=== PATIENT | male | born 1950 | race Caucasian/White ===

== ENCOUNTER → 2020-02-17 10:48 | Outpatient (BNVA) | payer MEDICARE, SELFPAY | PROVIDERS: Visit Provider Urology | DX: N40.1 Benign prostatic hyperplasia with lower urinary tract symptoms (principal); N13.8 Other obstructive and reflux uropathy; N52.9 Male erectile dysfunction, unspecified; R39.12 Poor urinary stream; N20.0 Calculus of kidney | CPT/HCPCS: Q3014 ==

== ENCOUNTER 2021-06-18 10:36 | Outpatient (REF) | payer MEDICARE, SELFPAY ==
--- NOTE | ~2021-06-18 | US_ITS ---
EXAMINATION: US RETROPERITONEAL LIMITED (RENAL ONLY) CLINICAL INFORMATION: Calculus of kidney. COMPARISON: None TECHNIQUE: Real-time imaging of the kidneys. FINDINGS: RIGHT KIDNEY: 10.9 x 5.4 x 4.6 cm (SAG x AP x TRV). The kidney is normal in size, contour, and echogenicity. Renal cortical thickness is normal. No focal parenchymal lesions. No hydronephrosis. . 3 mm Echogenic foci probably vascular calcifications versus nonobstructing stone. LEFT KIDNEY: 10.3 x 5.3 x 5.1 cm (SAG x AP x TRV). The kidney is normal in size, contour, and echogenicity. Renal cortical thickness is normal. No calculi or focal parenchymal lesions. No hydronephrosis. US/US renal BI IMPRESSION: Echogenic foci in the periphery of the right kidney might be vascular versus nonobstructing stone. No hydronephrosis..
[2021-06-18 13:10] LABS: Prostate Specific Antigen 0.52 ng/mL (<0.05-4.0)
== END 2021-06-18 10:37 | disposition home or self-care (01) ==
LOC: HO.US 10:36
PROVIDERS: PCP Internal Medicine; Visit Provider Urology
DX: Z12.5 Encounter for screening for malignant neoplasm of prostate (principal); N40.1 Benign prostatic hyperplasia with lower urinary tract symptoms; N20.0 Calculus of kidney; N13.8 Other obstructive and reflux uropathy
CPT/HCPCS: 36415; 76775; 84153

== ENCOUNTER → 2021-06-26 09:55 | Outpatient (BNVA) | payer MEDICARE, SELFPAY | PROVIDERS: Visit Provider Urology | DX: N40.1 Benign prostatic hyperplasia with lower urinary tract symptoms (principal); N13.8 Other obstructive and reflux uropathy; N52.9 Male erectile dysfunction, unspecified; N20.0 Calculus of kidney | CPT/HCPCS: 51798; 99212 ==

== ENCOUNTER 2022-10-28 12:38 | Outpatient (AMB) | payer MEDICARE, SELFPAY ==
--- NOTE | 2022-10-28 13:00 | A.OFFVIS_ITS ---
Intake Intake Visit Reasons: PSA Follow Up(SET) Intake Note: Patient is present for Follow Up PSA Urology Med: Terazosin Antibiotic Allergy: None Blood Thinner: None Pharmacy: [facility] PVR: 0ml Allergies No Known Allergies Allergy (Verified 10/28/22 13:01) Medication List - Last Reconciled 10/28/[address] MD amoxicillin 0 mg PO atorvastatin 10 mg PO DAILY fluticasone propionate 50 mcg/actuation 2 sprays intranasal DAILY gentamicin 0.3% 0 drps ophthalmic (eye) ipratropium bromide intranasal prednisone 10 mg PO BID terazosin 8 mg PO DAILY terazosin 10 mg PO BEDTIME 90 days HPI HPI Comments History of Present Illness Details Stuart is a pleasant male. He is a patient of Dr. Sousa. He is seen for the following urologic conditions - lower urinary tract symptoms - erectile dysfunction Discussed ultrasound finding Small stone Minimal symptoms Urination well-controlled on terazosin Did discuss postvoid dribbling Male Kegel exercises discussed 12 month follow-up imaging labs Erectile dysfunction: Stable Has medication He presents today for for continued evaluation and management of erectile dysfunction - medications work Symptoms have been present for/since ongoing. Current treatment includes none. At this time he experiences erections 2/19 are partial and adequate for vaginal penetration, that undergo rapid detumesence after penetration, YOANA 17- 21 Mild ED. Nocturnal erections do occur. Currently they are in a stable relationship. Associated problems hypertension No diabetes No dyslipidemia Yes Overall he is satisfied with the current management. Prostate/Bladder: Stable with daily terazosin Continue therapy Benign prostatic hyperplasia (BPH) was diagnosed A number of years . Current symptoms include straining, weak flow. Severity of the symptoms is 3 out of 10. Aggravating factors include no aggravating factors. Alleviating factors include alpha blockers - terazosin. Current medication(s) include terazosin 2mg. Recent labs included a PSA (prostate-specific antigen) 2013 0.7 09/15 0.6. Investigative studies included a uroflow Q. max 19.8, cystoscopy 2012 a large middle lobe of prostate. Noted on CT scan as well.. Nephrolithiasis/Urolithiasis: Imaging stable They are here for further evaluation of nephrolithiasis. The patient previously had kidney stones whose composition w unknown. Prior treatment(s) include observation. Prior imaging includes 02/16 , a CT (computed tomography) scan of the abdomen/pelvis (stone protocol), showing radiodense stone(s) 2mm right 02/17 , a renal ultrasound, small right renal stone. - 02/18 renal ultrasound. Question of small right renal stone - 05/21 renal ultrasound no stone seen Current therapeutic plan will be to continue with imaging surveillance. [facility] Medical History BPH (benign prostatic hyperplasia) Erectile dysfunction Hyperlipidemia Prostatism Scrotal anomaly Surgical History H/O arthroscopy of shoulder Review of Systems Const Denies chills and Denies fever(s) Card Reports no additional complaints and Denies syncope Resp Denies cough GI Denies abdominal pain and Denies heartburn Reports as per HPI and Denies change in libido Neuro Denies syncope Psych Denies change in libido Endo Denies change in libido Physical Exam Const General: cooperative, healthy appearing, comfortable and no acute distress Orientation/consciousness: patient oriented x3 HEENT Face and sinus: Yes normal facial exam Mouth: moist mucous membranes Neck Neck: Yes normal visual inspection, Yes full ROM and Yes trachea midline Chest Chest palpation & inspection: normal inspection of the chest Resp Effort & Inspection: normal respiratory effort, able to speak in complete sentences and no respiratory distress GI Inspection: Yes normal to inspection Back/Spine/Pelvis Cervical Spine: normal cervical lordosis Thoracic/Lumbar Spine: thoracic and lumbar spine normal to inspection Skin General skin exam: no rashes or lesions noted Neuro General: patient oriented x3, gait normal, tone normal and moves all extremities Extrem General: Yes normal to inspection and Yes capillary refill normal Office Procedures Post Void Residual Post Residual Void Post Void Residual (PVR): 0 [id number] Void Residual by ultrasound Assessment & Plan Assessment & Plan (1) Nephrolithiasis: Code(s): N20.0 - Calculus of kidney (2) Erectile dysfunction: Code(s): N52.9 - Male erectile dysfunction, unspecified (3) BPH w urinary obs/LUTS: Code(s): N40.1 - Benign prostatic hyperplasia with lower urinary tract symptoms; N13.8 - Other obstructive and reflux uropathy Plan Twelve month follow-up PSA labs Orders: Orders Prostate Specific Antigen 364 Days N20.0 - Calculus of kidney US renal BI 364 Days N20.0 - Calculus of kidney AMB Urinalysis Automated Today Z13.9 - Encounter for screening, unspecified AMB Post Void Residual by ultrasound Today N13.8 - Other obstructive and reflux uropathy, N40.1 - Benign prostatic hyperplasia with lower urinary tract symptoms Patient Instructions: Imaging studies, laboratory and physical exam results were discussed and reviewed in detail. No major barriers to patient understanding were identified. An opportunity to ask questions regarding the treatment plan was provided. All questions were answered. The patient expressed understanding and agreement with the above treatment plan. The patient is aware they should contact our office by phone for worsening of their current condition or the appearance of new urologic symptoms. Compliance is encouraged with any medications and followup testing that is ordered. It is a privilege to participate in the urologic care of your patient. If you have any questions or concerns regarding treatment for the above conditions, or other urologic issues, please do not hesitate to contact me. The office telephone contact is [phone]. This note is constructed using voice recognition software. While every effort has been made to ensure accuracy computer lab para professional errors may have been included. Yours sincerely, Dr Julio Cesar Street MD, [facility] - Urology Providers of Expert, Compassionate Care for the Genitourinary System Coding Level of Care Code Est Pt Level 4 (69555) Diagnoses Nephrolithiasis N20.0 Erectile dysfunction N52.9 BPH w urinary obs/LUTS N40.1; N13.8 CPT Codes Post Residual Void - PVR CPT Code: 19034-[id number] Void Residual by ultrasound ([id number])
== END 2022-10-28 15:08 | disposition home or self-care (01) ==
PROVIDERS: PCP Internal Medicine; Visit Provider Urology
DX: N20.0 Calculus of kidney (principal); N52.9 Male erectile dysfunction, unspecified; N40.1 Benign prostatic hyperplasia with lower urinary tract symptoms; N13.8 Other obstructive and reflux uropathy
CPT/HCPCS: 99214

== ENCOUNTER → 2022-10-28 12:38 | Outpatient (BNVA) | payer MEDICARE, SELFPAY | PROVIDERS: Visit Provider Urology | DX: N40.1 Benign prostatic hyperplasia with lower urinary tract symptoms (principal); N13.8 Other obstructive and reflux uropathy; N52.9 Male erectile dysfunction, unspecified; N20.0 Calculus of kidney | CPT/HCPCS: 51798; 99212 ==

== ENCOUNTER 2023-10-08 14:10 | Outpatient (REF) | payer MEDICARE, SELFPAY ==
--- NOTE | ~2023-10-08 | US_ITS ---
EXAMINATION: US RETROPERITONEAL COMPLETE (RENAL) CLINICAL INFORMATION: Renal calculus. COMPARISON: Renal ultrasound June 18, 2021 TECHNIQUE: Real-time imaging of the kidneys and bladder. FINDINGS: RIGHT KIDNEY: 10.7 x 5.3 x 5.0 cm (SAG x AP x TRV). The kidney is normal in size, contour, and echogenicity. Renal cortical thickness is normal. No calculi or focal parenchymal lesions. No hydronephrosis. LEFT KIDNEY: 9.9 x 5.2 x 4.4 cm (SAG x AP x TRV). The kidney is normal in size, contour, and echogenicity. Renal cortical thickness is normal. No calculi or focal parenchymal lesions. No hydronephrosis. US/US renal BI IMPRESSION: Unremarkable sonographic imaging of the kidneys. Specifically, no renal calculi or hydronephrosis of either kidney. Electronically signed by: Severino Flores MD 10/29/2023 07:28 AM EDT
== END 2023-10-08 14:11 | disposition home or self-care (01) ==
LOC: HO.US 14:10
PROVIDERS: PCP Internal Medicine; Visit Provider Urology
DX: N20.0 Calculus of kidney (principal)
CPT/HCPCS: 76775

== ENCOUNTER 2023-10-21 09:14 | Outpatient (REF) | payer MEDICARE, SELFPAY | END 2023-10-21 09:15 | disposition home or self-care (01) | LOC: HO.LAB 09:14 | PROVIDERS: PCP Internal Medicine; Visit Provider Urology | DX: Z12.5 Encounter for screening for malignant neoplasm of prostate (principal); N20.0 Calculus of kidney | CPT/HCPCS: 36415; 84153 ==

== ENCOUNTER 2023-10-27 13:29 | Outpatient (AMB) | payer MEDICARE, SELFPAY ==
--- NOTE | 2023-10-27 13:52 | MHC.OFFVIS ---
Intake Visit Reasons: 1Y Follow Up-PSA/US(set) Intake Note: Patient is Present for Follow Up PSA/Ultrasound Urology Medication: Terazosin Antibiotic Allergies: None Blood Thinners:None Header Machine Operator Required: No Accompanied by: Self / Same As Patient Allergies No Known Allergies Allergy (Verified 10/27/23 13:55) HPI Comments Details: Stuart is a pleasant male. He is a patient of Dr. Sousa. He is seen for the following urologic conditions - lower urinary tract symptoms - erectile dysfunction Ultrasound shows no stones Urination well-controlled on terazosin Previously recommended male Kegel exercises 12 month follow-up imaging labs Erectile dysfunction: Stable Has medication He presents today for for continued evaluation and management of erectile dysfunction - medications work Symptoms have been present for/since ongoing. Current treatment includes none. At this time he experiences erections 2/ are partial and adequate for vaginal penetration, that undergo rapid detumesence after penetration, YOANA 17-21 Mild ED. Nocturnal erections do occur. Currently they are in a stable relationship. Associated problems hypertension No diabetes No dyslipidemia Yes Overall he is satisfied with the current management. Prostate/Bladder: Stable with daily terazosin Continue therapy Benign prostatic hyperplasia (BPH) was diagnosed A number of years . Current symptoms include straining, weak flow. Severity of the symptoms is 3 out of 10. Aggravating factors include no aggravating factors. Alleviating factors include alpha blockers - terazosin. Current medication(s) include terazosin 2mg. Recent labs included a PSA (prostate-specific antigen) 2013 0.7 09/15 0.6. Investigative studies included a uroflow Q. max 19.8, cystoscopy 2012 a large middle lobe of prostate. Noted on CT scan as well.. Nephrolithiasis/Urolithiasis: Imaging stable They are here for further evaluation of nephrolithiasis. The patient previously had kidney stones whose composition w unknown. Prior treatment(s) include observation. Prior imaging includes 02/16 , a CT (computed tomography) scan of the abdomen/pelvis (stone protocol), showing radiodense stone(s) 2mm right 02/17 , a renal ultrasound, small right renal stone. - 02/18 renal ultrasound. Question of small right renal stone - 05/21 renal ultrasound no stone seen - 10/23 renal ultrasound no stones Current therapeutic plan will be to continue with imaging surveillance. [facility] Medical History Hyperlipidemia Prostatism Erectile dysfunction Scrotal anomaly BPH (benign prostatic hyperplasia) Surgical History H/O arthroscopy of shoulder Review of Systems Const Denies chills and Denies fever(s) Card Reports no additional complaints and Denies syncope Resp Denies cough GI Denies abdominal pain and Denies heartburn Reports as per HPI and Denies change in libido Neuro Denies syncope Psych Denies change in libido Endo Denies change in libido Physical Exam Const General: cooperative, healthy appearing, comfortable and no acute distress Orientation/consciousness: patient oriented x3 HEENT Face and sinus: Yes normal facial exam Mouth: moist mucous membranes Neck Neck: Yes normal visual inspection, Yes full ROM and Yes trachea midline Chest Chest palpation & inspection: normal inspection of the chest Resp Effort & Inspection: normal respiratory effort, able to speak in complete sentences and no respiratory distress GI Inspection: Yes normal to inspection Back/Spine/Pelvis Cervical Spine: normal cervical lordosis Thoracic/Lumbar Spine: thoracic and lumbar spine normal to inspection Skin General skin exam: no rashes or lesions noted Neuro General: patient oriented x3, gait normal, tone normal and moves all extremities Extrem General: Yes normal to inspection and Yes capillary refill normal Assessment & Plan Assessment & Plan (1) BPH w urinary obs/LUTS: Code(s): N40.1 - Benign prostatic hyperplasia with lower urinary tract symptoms; N13.8 - Other obstructive and reflux uropathy Category: Medical (2) Weak urinary stream: Code(s): R39.12 - Poor urinary stream Category: Medical (3) Erectile dysfunction: Code(s): N52.9 - Male erectile dysfunction, unspecified Category: Medical (4) Nephrolithiasis: Code(s): N20.0 - Calculus of kidney Category: Medical Plan Twelve month follow-up ultrasound Orders: Orders US renal BI 12 Months N20.0 - Calculus of kidney Patient Instructions: Imaging studies, laboratory and physical exam results were discussed and reviewed in detail. No major barriers to patient understanding were identified. An opportunity to ask questions regarding the treatment plan was provided. All questions were answered. The patient expressed understanding and agreement with the above treatment plan. The patient is aware they should contact our office by phone for worsening of their current condition or the appearance of new urologic symptoms. Compliance is encouraged with any medications and followup testing that is ordered. It is a privilege to participate in the urologic care of your patient. If you have any questions or concerns regarding treatment for the above conditions, or other urologic issues, please do not hesitate to contact me. The office telephone contact is [phone]. This note is constructed using voice recognition software. While every effort has been made to ensure accuracy treating machine operator errors may have been included. Yours sincerely, Dr Julio Cesar Street MD, [facility] - Urology Providers of Expert, Compassionate Care for the Genitourinary System Coding Level of Care Code Est Pt Level 4 (02541) Diagnoses BPH w urinary obs/LUTS N40.1; N13.8 Weak urinary stream R39.12 Erectile dysfunction N52.9 Nephrolithiasis N20.0
== END 2023-10-27 14:16 | disposition home or self-care (01) ==
LOC: HO.HUSH 13:29
PROVIDERS: PCP Internal Medicine; Visit Provider Urology
DX: N40.1 Benign prostatic hyperplasia with lower urinary tract symptoms (principal); N13.8 Other obstructive and reflux uropathy; R39.12 Poor urinary stream; N52.9 Male erectile dysfunction, unspecified; N20.0 Calculus of kidney
CPT/HCPCS: 99214

== ENCOUNTER → 2023-10-27 13:29 | Outpatient (BNVA) | payer MEDICARE, SELFPAY | PROVIDERS: PCP Internal Medicine; Visit Provider Urology | DX: N40.1 Benign prostatic hyperplasia with lower urinary tract symptoms (principal); N52.9 Male erectile dysfunction, unspecified; N13.8 Other obstructive and reflux uropathy; R39.12 Poor urinary stream; Z87.442 Personal history of urinary calculi | CPT/HCPCS: 99212 ==

== ENCOUNTER 2024-11-04 13:44 | Outpatient (REF) | payer MEDICARE, SELFPAY ==
--- NOTE | ~2024-11-04 | US_ITS ---
CLINICAL HISTORY: N40.1 - Benign prostatic hyperplasia with lower urinary tract symptoms US renal with Color Doppler Comparison: US/SR - US KIDNEY BILATERAL - 10/08/23 14:27 EDT Findings: Right kidney normal size and echotexture, 10.2 cm length. No hydronephrosis calculus or mass. Normal color flow. Left kidney normal size and echotexture, 9.8 cm length. No hydronephrosis calculus or mass. Normal color flow. Impression: 1. Normal renal ultrasound This document has been electronically signed by: Guicho Trevizo MD on 11/05/2024 18:32:21
--- OUTSIDE RECORDS SUMMARY | 2024-11-04 14:13 | XMS_ITS | Clinical Summary ---
Author Organization [facility] Address [address] [place] [address] Care Team Providers Care Reservoir Caretaker Name Role Phone None, Provider PAD MACHINE FEEDER Primary Care Provider Unavaila ble Social History Tobacco Use Types Packs/Day Years Used Date Smoking Tobacco: Never Assessed Sex and Gender Information Value Date Recorded Sex Assigned at Not on file Legal Sex Male 18:36 EST Gender Identity Not on file Sexual Orientation Not on file Plan of Treatment Health Maintenance Due Date Last Done Comments Hepatitis C Screen 1950 Fall Risk Screening 2014 COVID-19 Vaccine (2023- season) 2023 RSV Immunization ( o r 60+ Years) (1 - 1-dose 75+ series) 2024 Care Teams Reservoir Caretaker Relationship Specialty Start Date End Date None, Provider, PAD MACHINE FEEDER PCP - General 01/15/15
--- OUTSIDE RECORDS SUMMARY | 2024-11-04 14:13 | XMS_ITS | Encounter Summary ---
Author Organization [facility] Address [address] [place] [address] Care Team Providers Care Sign Builder Supervisor Name Role Phone Marcus Sousa MD Primary Care Provider [phone] Earl Kenney MD Unavailable [phone] Meet Sales MD Unavailable [phone] Encounter Details Date Type Department Care Team ([facility] Contact Info) Description 12/09/2019 Scanned Document [facility] [place] at [address] [address] Provider, Generic Social History Tobacco Use Types Packs/Day Years Used Date Smoking Tobacco: Never Smokeless Tobacco: Never Alcohol Use Standard Drinks/Week Comments Yes 0 (1 standard drink = 0.6 oz pur e alcohol) 1 beer every 2 weeks Sex and Gender Information Value Date Recorded Sex Assigned at Male 07/14/2024 6:52 AM EDT Legal Sex Male 2:26 PM EDT Gender Identity Male 07/14/2024 6:52 AM EDT Sexual Orientation Asexual 07/14/2024 6: 52 AM EDT COVID-19 Exposure Response Date Recorded In the last month, have you been in contact with someone who was confirmed or suspected to have Coronavirus / COVID-19? No / Unsure 12/08/2019 1:03 PM EDT documented as of this encounter Plan of Treatment Upcoming Encounters Date Type Department Care Team (Late Contact Info) Description 11/22/2024 7:30 AM EDT Appointment [facility] [address] [phone] Greg Méndez, STACKER ATTENDANT [address] [facility] [address] [place] [address] 11/22/2024 7:30 AM EDT Appointment [facility] [address] [place] [address] Meet Sales MD [address] [facility] [address] [place] [address] 12/15/2024 9:30 AM EDT Office Visit [facility] [address] [place] [phone] Greg Méndez P, STACKER ATTENDANT [address] [address] documented as of this encounter Procedures Procedure Name Priority Date/Time Associated Diagnosis Comments BOOKING SHEETS-SCAN 12/09/2019 documented in this encounter Results * BOOKING SHEETS-SCAN (12/09/2019) Narrative 12/09/2019 Ordered by an unspecified provider. us Generic Provider HX AMB PROCEDURES Final Result documented in this encounter Visit Diagnoses Not on filedocumented in this encounter Care Teams Sign Builder Supervisor Relationship Specialty Start Date End Date Marcus Sousa MD [address] [place] [id number] PCP - General Internal Medicine 11/28/19 Earl Kenney MD [address] [facility] [address] [place] [id number] Referring Provider Surgery, Orthopedic 12/06/19 10/04/20 Meet Sales MD [address] [facility] [address] [place] [address] Surgery, Orthopedic 12/06/19 documented as of this encounter
--- OUTSIDE RECORDS SUMMARY | 2024-11-04 14:13 | XMS_ITS | Clinical Summary ---
Author Organization [facility] Address [address] [place] [address] Care Team Providers Care Senior Electronics Technician Name Role Phone Marcus Sousa MD Primary Care Provider [phone] Allergies No known active allergies Medications Medication Sig Dispensed Refills Start Date End Date Status aspirin 81 MG EC tablet Take 81 mg by mouth. 0 11/03/2020 Active atorvastatin (LIPITOR) tablet 10 mg Take 10 mg by mouth every night at bedtime. 0 12/04/2020 Active omeprazole (PriLOSEC) 20 MG capsule Take 20 mg by mouth. 0 Active terazosin (HYTRIN) 10 MG capsule Take 10 mg by mouth. 0 Active meclizine (ANTIVERT) 25 MG tablet Take 1 tablet (25 mg total) by mouth 3 (three) times a day as needed. 30 tablet 0 11/07/2022 Active Active Problems No known active problems Social History Tobacco Use Types Packs/Day Years Used Date Smoking Tobacco: Never Smokeless Tobacco: Never Tobacco Cessation:Counseling Given: Not Answered Alcohol Use Standard Drinks/Week Comments Never 0 (1 standard drink = 0.6 oz pur e alcohol) Sex and Gender Information Value Date Recorded Sex Assigned at Male 12/29/2020 8:45 AM EDT Gender Identity Not on file Sexual Orientation Not on file Job Start Date Occupation Industry Not on file Not on file Not on file Last Filed Vital Signs Vital Sign Reading Time Taken Comments Blood Pressure 129/78 11/07/2022 11:26 AM EDT Pulse 66 11/07/2022 11:26 AM EDT Temperature 37.1 C (98.8 F) 11/07/2022 11:26 AM EDT Respiratory Rate 25 11/07/2022 11:2 6 AM EDT Oxygen Saturation 99% 11/07/2022 11: 26 AM EDT Inhaled Oxygen Concentration - - Weight 76.5 kg (168 lb 10.4 oz) 11/07/2022 2:51 PM EDT Height 165.1 cm (5' 5 ) 11/07/2022 2:51 PM EDT Body Mass Index 28.07 11/07/2022 2:51 PM EDT Plan of Treatment Health Maintenance Due Date Last Done Comments Hepatitis C Screening 1950 Depression Screening 1961 Preventative Health Evaluation 07/13/1967 DTap / Tdap / Td (1 - Tdap) 1968 Colon Cancer Screening (Colonoscopy) 1994 Shingrix-Zoster Vaccine (1 of 2) 07/13/1999 Fall Risk Assessment 2014 COVID-19 Vaccine ( season) 2023 01/28/2021, 05/09/2020, 04/18/2020 RSV Adult > 60+ Yrs or (1 - 1-dose 75+ series) 2024 Influenza Vaccine (#1) 2024 , 11/24/2019, 11/29/2018, Additional history exists Pneumococcal Vaccine Completed 10/30/2015, 08/09/19 15 Hepatitis B Vaccines Aged Out No long er eligible based on patient's age to complete this topic RSV Ped < 20 months Aged Out No longe r eligible based on patient's age to complete this topic Care Teams Senior Electronics Technician Relationship Specialty Start Date End Date Marcus Sousa MD [address] [place] [address] PCP - General Internal Medicine 12/29/20
--- OUTSIDE RECORDS SUMMARY | 2024-11-04 14:13 | XMS_ITS | Clinical Summary ---
Author Organization [facility]ly [facility] Address [address] [place] [address] Care Team Providers Care Fuel Truck Driver Name Role Phone Marcus Sousa MD Primary Care Provider [phone] Meet Sales MD Unavailable [phone] Allergies No known active allergies Medications terazosin (HYTRIN) 10 MG capsule Take 10 mg by mouth nightly. Take night before surgery Active atorvastatin (LIPITOR) 10 MG tablet Take 10 mg by mouth nightly. Take night before surgery Active cetirizine (ZyrTEC) 10 MG tablet Take 10 mg by mouth every morning. Take day of surgery Active linaCLOtide (LINZESS PO) Take by mouth 2 (two) times a day as needed. Active OMEprazole (PriLOSEC) 20 MG capsule Take 20 mg by mouth every morning before breakfast. Take day of surgery Active acetaminophen (TYLENOL) 325 MG tabletIndications: Primary osteoarthritis of right knee Take 3 tablets (975 mg total) by mouth every 6 (six) hours around the clock. Change to as needed after 2 weeks for mild pain/fever as pain control improves. 168 tablet 11/04/19 21 Active aspirin enteric coated (ECOTRIN LOW STRENGTH) 81 MG EC tabletIndications: Primary osteoarthritis of right knee Take 1 tablet (81 mg total) by mouth 2 (two) times a day. 56 tablet 11/04/19 21 Active HYDROmorphone (DILAUDID) 2 MG tabletIndications: Primary osteoarthritis of right knee Take 1-2 tablets (2-4 mg total) by mouth every 3 (three) hours as needed for moderate pain or severe pain. This is a narcotic medication which has addictive properties. Be sure to decrease the frequency and amount of medication you take as your pain decreases. Max Daily Amount: 32 mg 40 tablet 11/04/19 21 Active meloxicam (MOBIC) 7.5 MG tabletIndications: Primary osteoarthritis of right knee Take 1 tablet (7.5 mg total) by mouth daily. 14 tablet 11/04/19 21 Active methocarbamol (ROBAXIN) 500 MG tabletIndications: Primary osteoarthritis of right knee Take 1 tablet (500 mg total) by mouth 4 (four) times a day as needed for muscle spasms. 40 tablet 11/04/19 21 Active senna-docusate (SENNA-S) 8.6-50 MGIndications:Prim mary osteoarthritis of right knee Take 2 tablets by mouth nightly. Take as directed while using narcotic pain medication. Hold for loose stool. 60 tablet 11/04/19 21 Active Multiple Vitamins-Minerals (CENTRUM MEN PO) Take 1 tablet by mouth every morning. Stop 1 week before surgery. 020 Discontin ued(Patie nt Discharge ) Active Problems Problem Noted Date Diagnosed Date OA (osteoarthritis) 11/02/2020 Encounters Date Type Department Care Team Description 08/17/2024 CC Surg [facility] [address] [place] [phone] Meet Sales MD Primary osteoarthritis of left knee (Primary Dx) from Last 3 Months Family History Medical History Relation Name Comments Leukemia Brother 1 lost contact Pancreatic cancer Father lost contact Stroke Son 1 No Known Problems Son 2 No Known Problems Son 3 Relation Name Status Comments Brother 1 lost contact (Age 54) Brother 2 lost contact Alive Brother 3 lost contact Alive Brother 4 lost contact Alive Brother 5 lost contact Alive Father lost contact (Age 74) Mother lost contact (Age 37) Sister 1 lost contact w/family (Age 2) Sister 2 lost contact Alive Sister 3 lost contact Alive Sister 4 lost contact Alive Sister 5 lost contact Alive Sister 6 lost contact Alive Son 1 (Age 51) Son 2 Alive Son 3 Alive Social History Tobacco Use Types Packs/Day Years [...] Orientation Asexual 07/14/2024 6: 52 AM EDT Last Filed Vital Signs Vital Sign Reading Time Taken Comments Blood Pressure 138/78 11/23/2020 1:16 PM EDT Pulse 94 11/23/2020 1:16 PM EDT Temperature 36.4 C (97.5 F) 11/23/2020 1:16 PM EDT Respiratory Rate 18 11/12/2020 11:37 AM EDT Oxygen Saturation 98% 11/23/2020 1:16 PM EDT Inhaled Oxygen Concentration - - Weight 72.6 kg (160 lb) 11/04/2020 9:54 AM EDT Height 157.5 cm (5' 2 ) 11/04/2020 9:54 AM EDT Body Mass Index 29.26 11/04/2020 9:54 AM EDT Plan of Treatment Upcoming Encounters Date Type Department Care Team (Late st Contact Info) Description 11/22/2024 7:30 AM EDT [facility]ointment [facility] [address] [phone] Greg Méndez, LINING BRUSHER [address] [address] 11/22/2024 7:30 AM EDT [facility]ointment [facility] [address] [phone] Meet Sales MD [address] [address] 12/15/2024 9:30 AM EDT [facility] [address] [phone] Greg Méndez, LINING BRUSHER [address] [address] Health Maintenance Due Date Last Done Comments Advance Care Planning 1950 Hepatitis C Virus Screening 1950 DTaP/Tdap/Td Vaccines (1 - Tdap) 1968 Colonoscopy 1994 Pneumococcal Vaccines 50+ (1 of 1 - PCV) 07/13/1999 Zoster (Shingles) Vaccine (1 of 2) 07/13/1999 RSV Vaccine 60 years and older and Patients (1 - 1-dose 75+ series) 2024 Influenza Vaccine 09/30/2024 11/23/2023, , 12/04/2021, Additional history exists COVID-19 Vaccine ( season) 2024 01/12/2023, 01/28/2021, 05/09/2020, Additional history exists Hepatitis B Vaccines Aged Out No long er eligible based on patient's age to complete this topic Medical Devices Implanted Type Area Glass Enamel Mixer Device Identifier Shelf Expiration Date Model / Serial / Lot 6191-1-001 Cement Bone Smpx P Radopq Fd Sterl - [id number] Implanted:Qt y: 1 on 11/02/2020 by Meet Sales MD at Cement Right: Knee [employer] - DIV STRYKE 04/29/2021 6191-1-001 / / [id number] Cement Bone Smpx P Radopq Fd Sterl - [id number] Implanted:Qt y: 1 on 11/02/2020 by Meet Sales MD at Cement Right: Knee [employer] - DIV STRYKE 04/01/2022 6191-1-001 / / [id number] Component Femoral 6 Chong Knee Right Crcte Rtn Cement Legion - [id number] Implanted:Qt y: 1 on 11/02/2020 by Meet Sales MD at Joint Prosthesis Right: Knee [employer] - DIV S [id number] 02/02/2027 [id number] / / [id number] Baseplate Tibial Legion 4 Knee Right Cement Male Taper Ti - [id number] Implanted:Qt y: 1 on 11/02/2020 by Meet Sales MD at Joint Prosthesis Right: Knee [employer] - DIV S [id number] 01/23/2030 [id number] / / [id number] Component Patellar 7.5mm 35mm [employer] [place] 2 Knee - [id number] Implanted:Qt y: 1 on 11/02/2020 by Meet Sales MD at Joint Prosthesis Right: Knee [employer] - DIV S [id number] 01/03/2030 [id number] / / [id number] Insert Articular 3-4 11mm Knee Ddsh Xlpe Legion - [id number] Implanted:Qt y: 1 on 11/02/2020 by Meet Sales MD at Joint Prosthesis Right: Knee [employer] - DIV S [id number] 12/23/2029 [id number] / / [id number] Insurance MEDICARE PART A & B [facility] MEDICARE PART A & B MEDICARE PART A & B [facility] Advance Directives * Full Code (Latest Code Status on File) Date Activated Date Inactivated Comments 11/02/2020 9:52 AM * Full Code Date Activated Date Inactivated Comments 11/02/2020 5:39 AM 11/02/2020 9:52 AM Care Teams Fuel Truck Driver Relationship Specialty Start Date End Date Marcus Sousa MD [address] [place] [address] PCP - General Internal Medicine 11/28/19 Meet Sales MD [address] [place] [id number] Surgery, Orthopedic 12/06/19
--- OUTSIDE RECORDS SUMMARY | 2024-11-04 14:13 | XMS_ITS | Encounter Summary ---
Author Organization [facility] Address [address] [place] [address] Care Team Providers Care Feeder Catcher Tobacco Name Role Phone Marcus Sousa MD Primary Care Provider [phone] Meet Sales MD Unavailable [phone] Encounter Details Date Type Department Care Team (Late Contact Info) Description 10/23/2020 Prep for Surgery [facility] [address] [place] [address] 2nd [address] [place] [address] Marti Finney, MACHINE TESTER [address] [facility] [address] [place] [address] Social History Tobacco Use Types Packs/Day Years [...] have Coronavirus / COVID-19? No / Unsure 10/09/2020 11:18 AM EDT documented as of this encounter Plan of Treatment Upcoming Encounters Date Type Department Care Team (Late Contact Info) Description 11/22/2024 7:30 AM EDT [facility]ointment [facility] [address] [place] [phone] Greg Méndez, MACHINE TESTER [address] [address] 11/22/2024 7:30 AM EDT Appointment [facility] [address] [place] [phone] Meet Sales MD [address] [address] 12/15/2024 9:30 AM EDT [facility] [address] [phone] Greg Méndez, MACHINE TESTER [address] [address] documented as of this encounter Visit Diagnoses Not on filedocumented in this encounter Care Teams Feeder Catcher Tobacco Relationship Specialty Start Date End Date Marcus Sousa MD [address] [place] [phone] PCP - General Internal Medicine 11/28/19 Meet Sales MD [address] [place] [phone] Surgery, Orthopedic 12/06/19 documented as of this encounter
--- OUTSIDE RECORDS SUMMARY | 2024-11-04 14:13 | XMS_ITS | Clinical Summary ---
Author Organization [address] Address [address] [place] [address] Phone Care Team Providers Care Visually Impaired Teacher Name Role Phone Marcus Sousa MD Primary Care Provider [phone] Medications linaCLOtide (Linzess) 72 mcg capsuleIndicati ons:Constipatio n Take 1 capsule (72 mcg total) by mouth 1 (one) time each day before breakfast. 30 each 5 04/12/2024 10/10/19 25 Social History Tobacco Use Types Packs/Day Years Used Date Smoking Tobacco: Never Smokeless Tobacco: Never Alcohol Use Standard Drinks/Week Comments Never 0 (1 standard drink = 0.6 oz pur e alcohol) Sex and Gender Information Value Date Recorded Sex Assigned at Not on file Legal Sex Male 10:26 PM EST Gender Identity Not on file Sexual Orientation Not on file Obstetrics History Plan of Treatment Upcoming Encounters Date Type Department Care Team ([facility] Contact Info) Description 11/08/2024 8:20 AM EDT Office Visit [facility] - [address] [place] [address] Ponce Ellis MD [address] [place] [phone] Health Maintenance Due Date Last Done Comments DTaP,Tdap,and Td Vaccines (1 - Tdap) 1968 Pneumococcal Vaccine: 50+ Ye ars (1 of 1 - PCV) 07/13/1999 Zoster Vaccines (1 of 2) 07/13/1999 Abdominal Aortic Aneurysm (A AA) Screen 02/02/2022 Cholesterol Screening (Lipid Panel) 02/02/2022 Colorectal Cancer Screening: Colonoscopy 02/02/2022 Falls Risk Assessment 02/02/2022 Hepatitis C Screening 02/02/2022 Medicare Annual Wellness Visit 02/02/2022 Social Influencers of Health Screening 02/02/2022 Depression Screening 03/02/2024 RSV Immunization Adult Patie nts (1 - 1-dose 75+ series) 2024 COVID-19 Vaccine (2023-2 5 season) 2024 Influenza Vaccine (#1) 2024 HIB Vaccines Aged Out No longer eligi ble based on patient's age to complete this topic HPV Vaccines Aged Out No longer eligi ble based on patient's age to complete this topic Hepatitis A Vaccines Aged Out No long er eligible based on patient's age to complete this topic Hepatitis B Vaccines Aged Out No long er eligible based on patient's age to complete this topic IPV Vaccines Aged Out No longer eligi ble based on patient's age to complete this topic MMR Vaccines Aged Out No longer eligi ble based on patient's age to complete this topic Meningococcal ACWY Vaccine Aged Out N o longer eligible based on patient's age to complete this topic Meningococcal B Vaccine Aged Out No l onger eligible based on patient's age to complete this topic RSV Immunization Patients Un jacquie 20 months Aged Out No longer eligible b ased on patient's age to complete this topic Varicella Vaccines Aged Out No longer eligible based on patient's age to complete this topic Insurance [facility] MEDICARE Care Teams Visually Impaired Teacher Relationship Specialty Start Date End Date Marcus Sousa MD [address] [place] [id number] PCP - General Internal Medicine 12/29/20
== END 2024-11-04 13:45 | disposition home or self-care (01) ==
LOC: HO.US 13:44
PROVIDERS: PCP Internal Medicine; Visit Provider Urology
DX: N40.1 Benign prostatic hyperplasia with lower urinary tract symptoms (principal); N13.8 Other obstructive and reflux uropathy; N52.9 Male erectile dysfunction, unspecified; N20.0 Calculus of kidney
CPT/HCPCS: 76775

== ENCOUNTER 2024-11-11 12:54 | Outpatient (AMB) | payer MEDICARE, SELFPAY ==
--- OUTSIDE RECORDS SUMMARY | 2024-11-08 08:20 | XMS_ITS | Encounter Summary ---
Author Organization [facility] Address [address] [place] [phone] Care Team Providers Care Circulation Director Name Role Phone Marcus Sousa MD Primary Care Provider [phone] Reason for Visit * Reason Comments gas reflux Encounter Details Date Type Department Care Team (Latest Contact Info) Description 11/08/2024 8:20 AM EDT Office Visit Gastroenterology - [address] [phone] Ponce Ellis MD [address] [place] [phone] Gastroesophageal reflux disease without esophagitis (Primary Dx); Bloating; Eructation; Thompson's esophagus without dysplasia Social History Tobacco Use Types Packs/Day Years Used Date Smoking Tobacco: Never Smokeless Tobacco: Never Alcohol Use Standard Drinks/Week Comments Yes 0 (1 standard drink = 0.6 oz pur e alcohol) occ Sex and Gender Information Value Date Recorded Sex Assigned at Not on file Legal Sex Male 10:26 PM EST Gender Identity Not on file Sexual Orientation Not on file documented as of this encounter Last Filed Vital Signs Vital Sign Reading Time Taken Comments Blood Pressure - - Pulse - - Temperature - - Respiratory Rate - - Oxygen Saturation - - Inhaled Oxygen Concentration - - Weight 73 kg (161 lb) 11/08/2024 8:11 AM EDT Height 165.1 cm (5' 5 ) 11/08/2024 8:11 AM EDT Body Mass Index 26.79 11/08/2024 8:11 AM EDT documented in this encounter Progress Notes * Ponce Ellis MD - 11/08/2024 8:20 AM EDT Chief Complaint: GERD, Gas, Thompson's History Of Present Illness: Jhon Serra is a 74 y.o. male presenting with upper abdominal pain, belching, GERD. Issue develop one to two years ago and persists. Hard tome digesting, better on Linzess (one yr). Symptom is epigastric and LUQ fullness. Also with some heartburn and excessive belching. Omeprazxole has been helpful, not sure how long he has been on that. Still with frequent belching despite PPI. Also with early satiety. No dysphagia, wt loss, vomiting, blood in stool, nausea, daily NSAID use, CP, SOB Review of Systems Constitutional: Negative for chills, fatigue, fever and unexpected weight change. HENT: Negative for congestion, hearing loss, sore throat and trouble swallowing. Eyes: Negative for icterus, redness, itching. Respiratory: Negative for cough, shortness of breath and wheezing. Cardiovascular: Negative for chest pain, palpitations and leg swelling. Gastrointestinal: Negative for abdominal pain, blood in stool, constipation, diarrhea, nausea and vomiting. Genitourinary: Negative for difficulty urinating, dysuria and hematuria. Infectious Disease: No fever Musculoskeletal: Negative for arthralgias and myalgias. Skin: Negative for rash and wound. Neurological: Negative for dizziness, weakness and headaches. Positive memory loss. Hematological: Negative for adenopathy. Psychiatric/Behavioral: Negative for confusion, hallucinations or agitation. Problems: Patient Active Problem List Diagnosis Date Noted Bloating 11/08/2024 Eructation 11/08/2024 GERD (gastroesophageal reflux disease) 11/07/2024 Thompson's esophagus 11/07/2024 Asbestosis ([facility] V24, [facility] V28) 11/07/2024 Kidney stones 11/07/2024 Hyperlipidemia 11/07/2024 Vertigo 11/07/2024 BPH (benign prostatic hyperplasia) 11/07/2024 Surgical History: Past Surgical History: Procedure Laterality Date TOTAL KNEE ARTHROPLASTY 11/03/2020 Family History: Family History Problem Relation Name Age of Onset Aneurysm Mother 34 Pancreatic cancer Father 72 Leukemia Brother 53 No colon cancer Social History: Social History Tobacco Use Smoking status: Never Smokeless tobacco: Never Substance Use Topics Alcohol use: Yes Comment: occ Drug use: Never Allergies: Patient has no known allergies. Medications: Current Outpatient Medications Medication Instructions atorvastatin (LIPITOR) 10 mg, Nightly escitalopram (LEXAPRO) 10 mg, Daily fluticasone propionate (FLONASE) 50 mcg/actuation nasal spray 2 sprays, Daily meclizine (ANTIVERT) 25 mg, 3 times daily PRN multivitamin tablet 1 tablet, Daily omeprazole (PRILOSEC) 20 mg, Daily terazosin (HYTRIN) 5 mg, Nightly Vitals: Height 1.651 m (65 ), weight 73 kg (161 lb). Physical Exam Constitutional: No acute distress, well appearing. HENT: Mucous membranes are moist. Oropharynx is clear. Eyes: Extraocular movements intact. Conjunctivae normal, no icterus. Cardiovascular: Normal rate and rhythm. No murmur. Pulmonary: Pulmonary effort is normal. Clear to auscultation. Abdominal: No distension, no scars. Bowel sounds normal, no bruits. Soft and non-tender. No masses. No hepatomegaly. No obvious ascites. Extremities: Right lower leg: No edema. Left lower leg: No edema. Skin: No rash. Neurological: No focal deficit present. Alert and oriented to person, place, and time. No weakness. Psychiatric: Mood and affect normal. Imaging Nuclear gastric empty scan, 2022 Patients 4 hour retention amount was calculated at 22%. Reference normal solid residual activity: less than 90% at 1 hour less than 60% at 2 hours less than 30% at 3 hours less than 10% at 4 hours IMPRESSION: Delayed solid material gastric emptying. UGI 2022: 1. Several small oval filling defects are present in the body and antrum of the stomach which may represent gastric polyps. 2. There is a small to moderate-sized sliding axial hiatal hernia, unchanged in size and appearance since the prior study of 03/12/2018. A moderate amount of gastroesophageal reflux was again observed to the level of the upper esophagus. 3. Constipation. Labs No results found for: WBC , HGB , HCT , MCV , PLT No results found for: NA , K , CL , CO2 , BUN , CREATININE , CALCIUM , PROT , BILITOT , ALKPHOS , ALT , AST , GLUCOSE Impression: 1. GERD, mainly with regurgitation and epigastric discomfort, partly controlled on proton pump inhibitors 2. Thompson's esophagus, due for surveillance 3. Belching, regurgitation, and early satiety, consistent with mild gastroparesis which has been diagnosed on gastric emptying scan. This symptom complex does persist despite his GERD medications andLinzess. 4. Chronic constipation, consistent with IBS-C, controlled by Linzess. Interesting that he has slowmotility throughout his GI tract. There is no underlying condition or medication except potentiallyaging, to account for this. Plan: 1. Continue proton pump inhibitor daily 2. Continue Linzess daily 3. We discussed diet and lifestyle modifications, as well as [id number] remedies, for excessive gas and dyspepsia and GERD. He was given 2 handouts for this. I did ask him to add Gas-X as needed to his regimen. 4. EGD will be arranged for December, at least 6 weeks after his knee replacement which is scheduled for November 22. 5. Further recommendations pending EGD Ponce Ellis MD Board Certified, Gastroenterology G[facility]ology [facility] Hepatology Practice [email or web address] [phone] [place] [address] documented in this encounter Plan of Treatment Not on file documented as of this encounter Visit Diagnoses Diagnosis Gastroesophageal reflux disease without esophagitis- Primary Esophageal reflux Bloating Flatulence, eructation, and gas pain Eructation Flatulence, eructation, and gas pain Thompson's esophagus without dysplasia documented in this encounter Historical Medications * This list may reflect changes made after this encounter. multivitamin tablet Take 1 tablet by mouth 1 (one) time each day. terazosin (HYTRIN) 5 mg capsule Take 1 capsule (5 mg total) by mouth at bedtime. atorvastatin (LIPITOR) 10 mg tablet Take 1 tablet (10 mg total) by mouth at bedtime. at bedtime escitalopram (LEXAPRO) 10 mg tablet Take 1 tablet (10 mg total) by mouth 1 (one) time each day. 03/25/2024 fluticasone propionate (FLONASE) 50 mcg/actuation nasal spray Administer 2 sprays into each nostril 1 (one) time each day. 12/06/2023 omeprazole (PriLOSEC) [address] capsule Take 1 capsule (20 mg total) by mouth 1 (one) time each day. meclizine (ANTIVERT) 25 mg tablet Take 1 tablet (25 mg total) by mouth 3 times daily as needed. 11/07/2022 added in this encounter Care Teams Circulation Director Relationship Specialty Start Date End Date Marcus Sousa MD [address] [place] [address] PCP - General Internal Medicine 12/29/20 documented as of this encounter
--- NOTE | 2024-11-11 12:54 | MHC.OFFVIS ---
Intake Visit Reasons: 1yr/US Intake Note: patient presents today for: 1yr/US urology medicaions: terazosin blood thinners: none US done: 11/05/24 today's PVR: Telecommunication Equipment Repairer Required: No Accompanied by: Self / Same As Patient Allergies No Known Allergies Allergy (Verified 11/11/24 12:56) HPI Comments Details: Stuart is a pleasant male. He is a patient of Dr. Sousa. He is seen for the following urologic conditions - lower urinary tract symptoms - erectile dysfunction No stones on ultrasound Urination well-controlled on terazosin Previously recommended male Kegel exercises Starting to have minor memory issues Twelve month follow-up Erectile dysfunction: Stable Has medication He presents today for for continued evaluation and management of erectile dysfunction - medications work Symptoms have been present for/since ongoing. Current treatment includes none. At this time he experiences erections / are partial and adequate for vaginal penetration, that undergo rapid detumesence after penetration, YOANA 17-21 Mild ED. Nocturnal erections do occur. Currently they are in a stable relationship. Associated problems hypertension No diabetes No dyslipidemia Yes Overall he is satisfied with the current management. Prostate/Bladder: Stable with daily terazosin Continue therapy Benign prostatic hyperplasia (BPH) was diagnosed A number of years . Current symptoms include straining, weak flow. Severity of the symptoms is 3 out of 10. Aggravating factors include no aggravating factors. Alleviating factors include alpha blockers - terazosin. Current medication(s) include terazosin 2mg. Recent labs included a PSA (prostate-specific antigen) 2013 0.7 09/15 0.6, 10/23 0.6 Investigative studies included a uroflow Q. max 19.8, cystoscopy 2012 a large middle lobe of prostate. Noted on CT scan as well.. Nephrolithiasis/Urolithiasis: Imaging stable They are here for further evaluation of nephrolithiasis. The patient previously had kidney stones whose composition w unknown. Prior treatment(s) include observation. Prior imaging includes 02/16 , a CT (computed tomography) scan of the abdomen/pelvis (stone protocol), showing radiodense stone(s) 2mm right 02/17 , a renal ultrasound, small right renal stone. - 02/18 renal ultrasound. Question of small right renal stone - 05/21 renal ultrasound no stone seen - 10/23 renal ultrasound no stones Current therapeutic plan will be to continue with imaging surveillance. PFSH Medical History Hyperlipidemia Prostatism Erectile dysfunction Scrotal anomaly BPH (benign prostatic hyperplasia) Surgical History H/O arthroscopy of shoulder Review of Systems Const Denies chills and Denies fever(s) Card Reports no additional complaints and Denies syncope Resp Denies cough GI Denies abdominal pain and Denies heartburn Reports as per HPI and Denies change in libido Neuro Denies syncope Psych Denies change in libido Endo Denies change in libido Physical Exam Const General: cooperative, healthy appearing, comfortable and no acute distress Orientation/consciousness: patient oriented x3 HEENT Face and sinus: Yes normal facial exam Mouth: moist mucous membranes Neck Neck: Yes normal visual inspection, Yes full ROM and Yes trachea midline Chest Chest palpation & inspection: normal inspection of the chest Resp Effort & Inspection: normal respiratory effort, able to speak in complete sentences and no respiratory distress GI Inspection: Yes normal to inspection Back/Spine/Pelvis Cervical Spine: normal cervical lordosis Thoracic/Lumbar Spine: thoracic and lumbar spine normal to inspection Skin General skin exam: no rashes or lesions noted Neuro General: patient oriented x3, gait normal, tone normal and moves all extremities Extrem General: Yes normal to inspection and Yes capillary refill normal Office Procedures Post Void Residual Post Residual Void Post Void Residual (PVR): 10 [id number]-[id number] Void Residual by ultrasound Results AMB Urinalysis, Automated UA Leukoctes 0 Quang/uL Last Edit by VICENTE Boland on 11/11/24 13:19 UA Nitrite Negative Last Edit by VICENTE Boland on 11/11/24 13:19 UA Urobilinogen 0.2 mg/dL Last Edit by VICENTE Boland on 11/11/24 13:19 UA Protein 0 mg/dL Last Edit by VICENTE Boland on 11/11/24 13:19 UA pH 6.0 Last Edit by VICENTE Boland on 11/11/24 13:19 UA Blood 0 Mika/uL Last Edit by VICENTE Boland on 11/11/24 13:19 UA Specific Bolton 1.010 Last Edit by VICENTE Boland on 11/11/24 13:19 UA Ketone Negative Last Edit by VICENTE Boland on 11/11/24 13:19 UA Bilirubin 0 mg/dL Last Edit by VICENTE Boland on 11/11/24 13:19 UA Glucose 0 mg/dL Last Edit by VICENTE Boland on 11/11/24 13:19 Results Reviewed Results Reviewed: Laboratory Last Values Urine pH (Auto) 6.0 11/11/24 13:18 Specific Bolton (Auto) 1.010 11/11/24 13:18 Urine Protein (Auto) 0 mg/dL 11/11/24 13:18 Glucose (UA)(Auto) 0 mg/dL 11/11/24 13:18 Urine Ketones (Auto) Negative 11/11/24 13:18 Urine Blood (Auto) 0 Mika/uL 11/11/24 13:18 Urine Nitrite (Auto) Negative 11/11/24 13:18 Urine Bilirubin (Auto) 0 mg/dL 11/11/24 13:18 Urine Urobilinogen (Auto) 0.2 mg/dL 11/11/24 13:18 Leukocyte Esterase (Auto) 0 Quang/uL 11/11/24 13:18 Assessment & Plan Assessment & Plan (1) BPH w urinary obs/LUTS: Code(s): N40.1 - Benign prostatic hyperplasia with lower urinary tract symptoms; N13.8 - Other obstructive and reflux uropathy Category: Medical (2) Nephrolithiasis: Code(s): N20.0 - Calculus of kidney Category: Medical Plan Twelve month follow-up office PVR Refill terazosin Orders: Orders AMB Post Void Residual by ultrasound Today N13.8 - Other obstructive and reflux uropathy, N40.1 - Benign prostatic hyperplasia with lower urinary tract symptoms AMB Urinalysis Automated Today Z13.9 - Encounter for screening, unspecified Medications: Changed From terazosin 5 mg PO BEDTIME 30 days 30 caps 1RF To terazosin 5 mg PO BEDTIME 90 caps 3RF 90 days Patient Instructions: This note is constructed using voice recognition software. While every effort has been made to ensure accuracy combination operator errors may have been included. Imaging studies, laboratory and physical exam results were discussed and reviewed in detail. No major barriers to patient understanding were identified. An opportunity to ask questions regarding the treatment plan was provided. All questions were answered. The patient expressed understanding and agreement with the above treatment plan. The patient is aware they should contact our office by phone for worsening of their current condition or the appearance of new urologic symptoms. Compliance is encouraged with any medications and followup testing that is ordered. It is a privilege to participate in the urologic care of your patient. If you have any questions or concerns regarding treatment for the above conditions, or other urologic issues, please do not hesitate to contact me. The office telephone contact is [phone]. Sincerely, Dr Julio Cesar Street MD, [facility] - Urology Compassionate Specialist Care for the Genitourinary System Coding Level of Care Code Est Pt Level 4 (32850) Complex EM visit Add On G2211 Diagnoses BPH w urinary obs/LUTS N40.1; N13.8 Nephrolithiasis N20.0 CPT Codes Post Residual Void - PVR CPT Code: 80508-Imva Void Residual by ultrasound ([id number])
--- OUTSIDE RECORDS SUMMARY | 2024-11-11 15:18 | XMS_ITS | Clinical Summary ---
Author Organization [facility] Address [address] [place] [address] Care Team Providers Care Comprehensive Advisor Name Role Phone Marcus Sousa MD Primary Care Provider [phone] Allergies No known active allergies Medications Medication [...] of 2) 07/13/1999 Fall Risk Assessment 2014 RSV Adult > 60+ Yrs or (1 - 1-dose 75+ series) 2024 COVID-19 Vaccine ( season) 2024 01/28/2021, 05/09/2020, 04/18/2020 Influenza Vaccine (#1) 2024 , 11/24/2019, 11/29/2018, Additional history exists Pneumococcal Vaccine Completed 10/30/2015, 08/09/19 15 Hepatitis B Vaccines Aged Out No long er eligible based on patient's age to complete this topic RSV Ped < 20 months Aged Out No longe r eligible based on patient's age to complete this topic Care Teams Comprehensive Advisor Relationship Specialty Start Date End Date Marcus Sousa MD [address] [place] [address] PCP - General Internal Medicine 12/29/20
--- OUTSIDE RECORDS SUMMARY | 2024-11-11 15:18 | XMS_ITS | Encounter Summary ---
Author Organization [facility] Address [address] [place] [address] Care Team Providers Care Brilliandeer Looper Name Role Phone Marcus Sousa MD Primary Care Provider [phone] Meet Sales MD Unavailable [phone] Encounter Details Date Type Department Care Team (Late Contact Info) Description 10/23/2020 Prep for Surgery [facility] [address] [place] [address] 2nd Floor [address] [place] [address] Marti Finney, INTELLIGENCE OPERATIONS SPECIALIST 31 [facility] [address] [place] [address] Social History Tobacco Use Types Packs/Day Years [...] 11/22/2024 7:30 AM EDT [facility]ointment [facility] [address] [place] [address] Greg Méndez, INTELLIGENCE OPERATIONS SPECIALIST [address] [address] 11/22/2024 7:30 AM EDT Appointment [facility] [address] [place] [address] Meet Sales MD [address] [address] 12/15/2024 9:30 AM EDT [facility] [address] [address] Greg Méndez, INTELLIGENCE OPERATIONS SPECIALIST [address] [address] documented as of this encounter Visit Diagnoses Not on filedocumented in this encounter Care Teams Brilliandeer Looper Relationship Specialty Start Date End Date Marcus Sousa MD [address] [place] [address] PCP - General Internal Medicine 11/28/19 Meet Sales MD [address] [place] [address] Surgery, Orthopedic 12/06/19 documented as of this encounter
--- OUTSIDE RECORDS SUMMARY | 2024-11-11 15:18 | XMS_ITS | Encounter Summary ---
Author Organization [facility] Address [address] [place] [address] Care Team Providers Care Commercial Construction Superintendent Name Role Phone Marcus Sousa MD Primary Care Provider [phone] Meet Sales MD Unavailable [phone] Encounter Details Date Type Department Care Team ([facility] st Contact Info) Description 11/08/2024 Telephone [facility] [address] [phone] Greg Méndez, DENTAL NURSE [address] [address] Social History Tobacco Use Types Packs/Day Years [...] Orientation Asexual 07/14/2024 6: 52 AM EDT documented as of this encounter Miscellaneous Notes * Telephone Encounter - Greg Méndez APRN - 11/08/2024 12:16 PM EDT Spoke with the patient's by phone today, she had questions towards his regular home medications leading up to day of surgery I reviewed the details with her. All questions answered to her statedsatisfaction. She states that all surgical paperwork will be signed and mailed to her office tomorrow Greg Méndez APRN Supervised by: Dr. Mónica MD documented in this encounter Plan of Treatment Upcoming Encounters Date Type Department Care Team (Late st Contact Info) Description 11/22/2024 7:30 AM EDT [facility]ointment [facility] [address] [address] Greg Méndez APRN [address] [address] 11/22/2024 7:30 AM EDT Appointment [facility] [address] [address] Meet Sales MD [address] [address] 12/15/2024 9:30 AM EDT [facility] [address] [phone] Greg Méndez APRN [address] [address] documented as of this encounter Visit Diagnoses Not on filedocumented in this encounter Care Teams Commercial Construction Superintendent Relationship Specialty Start Date End Date Marcus Sousa MD [address] [place] [address] PCP - General Internal Medicine 11/28/19 Meet Sales MD [address] [place] [address] Surgery, Orthopedic 12/06/19 documented as of this encounter
--- OUTSIDE RECORDS SUMMARY | 2024-11-11 15:19 | XMS_ITS | Encounter Summary ---
Author Organization [facility] Address [address] [place] [address] Care Team Providers Care Brick Picker Name Role Phone Marcus Sousa MD Primary Care Provider [phone] Encounter Details Date Type Department Care Team (Late st Contact Info) Description 11/08/2024 Telephone Gastroenterology - [address] [facility] [address] [place] [address] Jeanette Dennis MA Social History Tobacco Use Types Packs/Day Years [...] on file documented as of this encounter Progress Notes * Jeanette Dennis MA - 11/08/2024 9:30 AM EDT BOOKED PATIENT EGD W/RASHEEDA, documented in this encounter Plan of Treatment Not on file documented as of this encounter Visit Diagnoses Not on filedocumented in this encounter Care Teams Brick Picker Relationship Specialty Start Date End Date Marcus Sousa MD [address] [place] [address] PCP - General Internal Medicine 12/29/20 documented as of this encounter
--- OUTSIDE RECORDS SUMMARY | 2024-11-11 15:19 | XMS_ITS | Clinical Summary ---
Author Organization [facility] Address [address] [place] [address] Care Team Providers Care Manager Services Name Role Phone None, Provider SMOKE TESTER Primary Care Provider Unavaila ble Social History [...] - 1-dose 75+ series) 2024 Care Teams Manager Services Relationship Specialty Start Date End Date None, Provider, SMOKE TESTER PCP - General 01/15/15
--- OUTSIDE RECORDS SUMMARY | 2024-11-11 15:19 | XMS_ITS | Encounter Summary ---
Author Organization [facility] Address [address] [place] [address] Care Team Providers Care Home Care And Home Health Aides Teacher Name Role Phone Marcus Sousa MD Primary Care Provider [phone] Earl Kenney MD Unavailable [phone] Meet Sales MD Unavailable [phone] Encounter Details Date Type Department Care Team ([facility] Contact Info) Description 12/09/2019 Scanned Document [facility] at [address] [address] Provider, Generic Social History Tobacco [...] 7:30 AM EDT Appointment [facility] [address] [address] Greg Méndez, DIRECTOR EMPLOYMENT 31 [facility] [address] [place] [address] 11/22/2024 7:30 AM EDT [facility]ointment [facility] [address] [facility] [address] Meet Sales MD 31 [facility] [address] [place] [address] 12/15/2024 9:30 AM EDT [facility] [address] [place] [phone] Greg Méndez P, DIRECTOR EMPLOYMENT [address] [address] documented as of this encounter Procedures Procedure Name Priority Date/Time Associated Diagnosis Comments BOOKING SHEETS-SCAN 12/09/2019 documented in this encounter Results * BOOKING SHEETS-SCAN (12/09/2019) Narrative 12/09/2019 Ordered by an unspecified provider. us Generic Provider HX AMB PROCEDURES Final Result documented in this encounter Visit Diagnoses Not on filedocumented in this encounter Care Teams Home Care And Home Health Aides Teacher Relationship Specialty Start Date End Date Marcus Sousa MD [address] [place] [address] PCP - General Internal Medicine 11/28/19 Earl Kenney MD 85 [facility] [address] [place] [address] Referring Provider Surgery, Orthopedic 12/06/19 10/04/20 Meet Sales MD 31 [facility] [address] [place] [address] Surgery, Orthopedic 12/06/19 documented as of this encounter
--- OUTSIDE RECORDS SUMMARY | 2024-11-11 15:19 | XMS_ITS | Clinical Summary ---
Author Organization [facility] Address [address] [place] [address] Care Team Providers Care Burn Nurse Name Role Phone Marcus Sousa MD Primary Care Provider Meet Sales MD Unavailable [phone] Allergies No known active allergies Medications terazosin [...] Encounters Date Type Department Care Team Description 11/08/2024 [facility]phone [facility] [address] [address] Greg Méndez APRN 08/17/2024 CC Surg Order [facility] [address] [phone] Meet Sales MD Primary osteoarthritis of left [...] 11/22/2024 7:30 AM EDT Appointment [facility] [address] [address] Greg Méndez, ARCHITECTURE INTERNSHIP [address] [address] 11/22/2024 7:30 AM EDT Appointment [facility] [address] [address] Meet Sales MD [address] [address] 12/15/2024 9:30 AM EDT [facility] [address] [phone] Greg Méndez, ARCHITECTURE INTERNSHIP [address] [place] [address] Health Maintenance Due Date Last Done Comments [...] , 12/04/2021, Additional history exists COVID-19 Vaccine (2024- season) 2024 01/12/2023, 01/28/2021, 05/09/2020, Additional history exists Hepatitis B Vaccines Aged Out No long er eligible based on patient's age to complete this topic Medical Devices Implanted Type Area Hemstitcher Device Identifier Shelf Expiration Date Model / Serial / Lot 6191-1-001 Cement Bone Smpx P Radopq Fd Sterl - [id number] Implanted:Qt y: 1 on 11/02/2020 by Meet Sales MD at [facility] Cement Right: Knee [employer] - DIV STRY 04/29/2021 6191-1-001 / / [id number] Cement Bone Smpx P Radopq Fd Sterl - [id number] Implanted:Qt y: 1 on 11/02/2020 by Meet Sales MD at [facility] Cement Right: Knee [employer] - DIV STRY 04/01/2022 6191-1-001 / / [id number] Component Femoral 6 Chong Knee Right Crcte Rtn Cement Legion - [id number] Implanted:Qt y: 1 on 11/02/2020 by Meet Sales MD at [facility] Joint Prosthesis Right: Knee [employer] [id number] 02/02/2027 [id number] / / [id number] Baseplate Tibial Legion 4 Knee Right Cement Male Taper Ti - [id number] Implanted:Qt y: 1 on 11/02/2020 by Meet Sales MD at [facility] Joint Prosthesis Right: Knee [employer] [id number] 01/23/2030 [id number] / / [id number] Component Patellar 7.5mm 35mm Rsrfc [place] 2 Knee - [id number] Implanted:Qt y: 1 on 11/02/2020 by Meet Sales MD at [facility] Joint Prosthesis Right: Knee [employer] [id number] 01/03/2030 [id number] / / [id number] Insert Articular 3-4 11mm Knee Ddsh Xlpe Legion - [id number] Implanted:Qt y: 1 on 11/02/2020 by Meet Sales MD at [facility] Joint Prosthesis Right: Knee [employer] [id number] 12/23/2029 [id number] / / [id number] Insurance MEDICARE PART A & B [facility] MEDICARE PART A & B MEDICARE PART A & B [facility] Advance Directives * Full Code (Latest Code Status on File) Date Activated Date Inactivated Comments 11/02/2020 9:52 AM * Full Code Date Activated Date Inactivated Comments 11/02/2020 5:39 AM 11/02/2020 9:52 AM Care Teams Burn Nurse Relationship Specialty Start Date End Date Marcus Sousa MD [address] [place] [address] PCP - General Internal Medicine 11/28/19 Meet Sales MD [address] [place] [address] [address] [place] [address] Surgery, Orthopedic 12/06/19
--- OUTSIDE RECORDS SUMMARY | 2024-11-11 15:19 | XMS_ITS | Clinical Summary ---
Author Organization [facility] 299 [facility] Address [address] [place] [address] Phone Care Team Providers Care Supervisor Logging Name Role Phone Marcus Sousa MD Primary Care Provider [phone] Allergies No known active allergies Medications meclizine (ANTIVERT) 25 mg tablet Take 1 tablet (25 mg total) by mouth 3 times daily as needed. 3 Active omeprazole (PriLOSEC) [address] capsule Take 1 capsule (20 mg total) by mouth 1 (one) time each day. Active fluticasone propionate (FLONASE) 50 mcg/actuation nasal spray Administer 2 sprays into each nostril 1 (one) time each day. 4 Active escitalopram (LEXAPRO) 10 mg tablet Take 1 tablet (10 mg total) by mouth 1 (one) time each day. 5 Active atorvastatin (LIPITOR) 10 mg tablet Take 1 tablet (10 mg total) by mouth at bedtime. at bedtime Active terazosin (HYTRIN) 5 mg capsule Take 1 capsule (5 mg total) by mouth at bedtime. Active multivitamin tablet Take 1 tablet by mouth 1 (one) time each day. Active Active Problems Problem Noted Date Diagnosed Date Bloating 11/08/2024 Eructation 11/08/2024 GERD (gastroesophageal reflux disease) Thompson's esophagus 11/07/202412/2005 Asbestosis (CMS/HCC V24, CMS/HCC V28) 11/07/2024 Kidney stones 11/07/2024 Hyperlipidemia 11/07/2024 Vertigo 11/07/2024 BPH (benign prostatic hyperplasia) 11/07/2024 Encounters Date Type Department Care Team Description 11/08/2024 8:20 AM EDT Office Visit Gastroenterology - [address] [phone] Ponce Ellis MD Gastroesophageal reflux disease without esophagitis (Primary Dx); Bloating; Eructation; Thompson's esophagus without dysplasia 11/08/2024 Telephone Gastroenterology - [address] [phone] Jeanette Dennis MA from Last 3 Months Surgical History Surgery Date Site/Laterality Comments TOTAL KNEE ARTHROPLASTY 11/03/2020 Family History Medical History Relation Name Comments Leukemia Brother Pancreatic cancer Father Aneurysm Mother Relation Name Status Comments Brother Father Mother Social History Tobacco Use Types Packs/Day Years Used Date Smoking Tobacco: Never Smokeless Tobacco: Never Alcohol Use Standard Drinks/Week Comments Yes 0 (1 standard drink = 0.6 oz pur e alcohol) occ Sex and Gender Information Value Date Recorded Sex Assigned at Not on file Legal Sex Male 10:26 PM EST Gender Identity Not on file Sexual Orientation Not on file Obstetrics History Last Filed Vital Signs Vital Sign Reading Time Taken Comments Blood Pressure - - Pulse - - Temperature - - Respiratory Rate - - Oxygen Saturation - - Inhaled Oxygen Concentration - - Weight 73 kg (161 lb) 11/08/2024 8:11 AM EDT Height 165.1 cm (5' 5 ) 11/08/2024 8:11 AM EDT Body Mass Index 26.79 11/08/2024 8:11 AM EDT Plan of Treatment Health Maintenance Due Date Last Done Comments DTaP,Tdap,and Td Vaccines (1 - Tdap) 1969 Pneumococcal Vaccine: 50+ Ye ars (1 of 1 - PCV) 07/13/1999 Zoster Vaccines (1 of 2) 07/13/1999 Cholesterol Screening (Lipid Panel) 02/02/2022 Colorectal Cancer Screening: Colonoscopy 02/02/2022 Falls Risk Assessment 02/02/2022 Hepatitis C Screening 02/02/2022 Medicare Annual Wellness Visit 02/02/2022 Social Influencers of Health Screening 02/02/2022 Depression Screening 03/02/2024 RSV Immunization Adult Patie nts (1 - 1-dose 75+ series) 2024 COVID-19 Vaccine (1 - 2023-2 5 season) 2024 Influenza Vaccine (#1) 2024 12/08/2020 HIB Vaccines Aged Out No longer eligi [...] patient's age to complete this topic Insurance [facility] MEDICARE Care Teams Supervisor Logging Relationship Specialty Start Date End Date Marcus Sousa MD [address] [place] [address] PCP - General Internal Medicine 12/29/20
== END 2024-11-11 13:50 | disposition home or self-care (01) ==
LOC: HO.HUSH 12:55
PROVIDERS: PCP Internal Medicine; Visit Provider Urology
DX: N40.1 Benign prostatic hyperplasia with lower urinary tract symptoms (principal); N13.8 Other obstructive and reflux uropathy; N20.0 Calculus of kidney; Z13.9 Encounter for screening, unspecified
CPT/HCPCS: 99214; G2211

== ENCOUNTER → 2024-11-11 12:54 | Outpatient (BNVA) | payer MEDICARE, SELFPAY | PROVIDERS: PCP Internal Medicine; Visit Provider Urology | DX: N40.1 Benign prostatic hyperplasia with lower urinary tract symptoms (principal); N20.0 Calculus of kidney; N13.8 Other obstructive and reflux uropathy | CPT/HCPCS: 51798; 81003; 99212 ==